=== PATIENT | male | born 1935 | race Caucasian/White ===

== ENCOUNTER 2024-02-07 03:35 | Inpatient (IN) | payer MEDICARE, OTHER ==
[~2024-02-07] VITALS: Ht 180.3 cm; Wt 68.5 kg
[2024-02-07] VITALS (15 sets, daily range): BP systolic 116–176; BP diastolic 58–86; PULSE 59–80; RESP 10–22; TEMP 94.3–99.3; O2SAT 95–100
[~2024-02-07 03:35] MED LIST: CALAN SR120 MG PO; FINASTERIDE5 MG PO; GLIPIZIDE5 MG PO; PROSCAR5 MG PO; TAMSULOSIN HCL0.4 MG PO; TRANDOLAPRIL4 MG PO
[2024-02-07 04:05] LABS: BASOPHILS % 0.2 % (0.0-1.0); EOSINOPHILS % 0.1 % (0.0-6.0); HEMOGLOBIN 14.7 g/dL (14.0-18.0); LYMPHOCYTES # (AUTO) 0.7 (1.0-3.2); MEAN CORPUSCULAR HEMOGLOBIN 30.1 pg (28-32); MEAN CORPUSCULAR HGB CONC 33.4 g/dL (31-35); MONOCYTES # (AUTO) 0.3 (0.2-0.8); MONOCYTES % 3.1 % (4.4-11.3); NEUTROPHILS # (AUTO) 9.1 (2.1-6.9); NEUTROPHILS % 89.3 % (38.7-80.0); PLATELET COUNT 213 x10e3/uL (140-360); RED BLOOD COUNT 4.89 x10e6/uL (4.3-5.7); RED CELL DISTRIBUTION WIDTH 12.3 % (11.7-14.4); WHITE BLOOD COUNT 10.24 x10e3/uL (4.8-10.8)
[2024-02-07] MEDS: Morphine 4mg INJECTION 4 MG/ML INJ IV ONE (04:12)
[2024-02-07] MEDS: ONDANSETRON HCL INJ 2MG/ML 2ML 2 MG/ML VIAL IV STA (04:13)
[2024-02-07 04:19] LABS: ALBUMIN 4.8 g/dL (3.5-5.0); ALBUMIN/GLOBULIN RATIO 1.3 (0.8-2.0); ANION GAP 22.2 mmol/L (8-16); BILIRUBIN,TOTAL 1.1 mg/dL (0.2-1.2); CALCIUM 9.9 mg/dL (8.4-10.2); CREATININE, SERUM 1.08 mg/dL (0.72-1.25); POTASSIUM 4.2 mmol/L (3.5-5.1); TOTAL PROTEIN 8.5 g/dL (6.5-8.1)
[2024-02-07] MEDS ORDERED: IOPAMIDOL 370 MG/ML 100 ML INFUS..BTL INJ ONE (04:31)
[2024-02-07 04:47] LABS: TROPONIN I 0.05 ng/mL (0-0.300)
[2024-02-07] MEDS ORDERED: HYDRALAZINE HCL 20 MG/ML VIAL ONE (04:55)
[2024-02-07] MEDS: BENZOCAINE/TETRACAINE/BUTAMBEN AERO SPRAY 56 GM CAN TOP ONE (05:11)
[2024-02-07] MEDS ORDERED: DEXTROSE 50% SYRINGE 50 ML IV PRN (05:15)
[2024-02-07] MEDS: SODIUM CHLORIDE 0.9% 1000ML 1,000 ML IV SCH ×2 (05:29→21:43)
[2024-02-07] MEDS: HYDRALAZINE HCL 20 MG/ML VIAL IV STA (05:29)
[2024-02-07 06:16] LABS: CLARITY,URINE CLEAR (CLEAR); COLOR,URINE YELLOW (YELLOW)
[2024-02-07 06:17] LABS: LEUKOCYTE ESTERASE ,URINE NEGATIVE (NEGATIVE); PH,URINE 6 (5 - 7)
[2024-02-07 06:18] LABS: BILIRUBIN,URINE NEGATIVE (NEGATIVE); GLUCOSE, URINE 500 (NEGATIVE); KETONES,URINE 2+ (NEGATIVE); NITRITE,URINE NEGATIVE (NEGATIVE); PROTEIN,URINE DIPSTICK >=300 (NEGATIVE); URINE UROBILINOGEN 0.2 mg/dL (0.2 - 1)
[2024-02-07 06:31] LABS: BACTERIA,URINE RARE /HPF; EPITHELIAL CELLS,URINE RARE /LPF; WBC,URINE (MAN) 0-5 /HPF (0-5)
[2024-02-07] MEDS ORDERED: METFORMIN HCL500 MG PO (07:01)
[2024-02-07] MEDS ORDERED: LOSARTAN POTASS25 MG PO (07:01)
[2024-02-07] MEDS ORDERED: JANUVIA50 MG PO (07:01)
[2024-02-07] MEDS ORDERED: FLOMAX0.4 MG PO (07:01)
[2024-02-07] MEDS ORDERED: JANUVIA100 MG PO (07:01)
[2024-02-07] MEDS ORDERED: VERAPAMIL ER120 MG PO (07:01)
[2024-02-07] MEDS: INSULIN REGULAR, HUMAN 100 UNIT/1 ML SQ SCH (07:30)
[2024-02-07] MEDS: Morphine 4mg INJECTION 4 MG/ML INJ IV PRN (08:41)
[2024-02-07 09:01] LABS: HEMATOCRIT 39.6 % (38.2-49.6); HEMOGLOBIN 14.1 g/dL (14.0-18.0)
[2024-02-07 09:20] LABS: ANION GAP 18.6 mmol/L (8-16); CALCIUM 9.3 mg/dL (8.4-10.2); CREATININE, SERUM 1.1 mg/dL (0.72-1.25); POTASSIUM 3.6 mmol/L (3.5-5.1)
[2024-02-07] MEDS: ONDANSETRON HCL INJ 2MG/ML 2ML 2 MG/ML VIAL IV PRN (12:29)
[2024-02-07] MEDS ORDERED: SUCCINYLCHOLINE CHLORIDE 20 MG/ML 10ML VIAL ONE (18:12)
[2024-02-07] MEDS ORDERED: FENTANYL CITRATE/PF 100MCG/2 ML INJ ONE ×2 (18:12→20:22)
[2024-02-07] MEDS ORDERED: ROCURONIUM BROMIDE 1 ML IV ONE (18:12)
[2024-02-07] MEDS ORDERED: LIDOCAINE HCL 2% LOCAL INJ 5 ML SDV VIAL INJ ONE (18:12)
[2024-02-07] MEDS ORDERED: PROPOFOL IV EMULSION 10 MG/ML 20 ML VIAL ONE (18:13)
[2024-02-07] MEDS ORDERED: EPHEDRINE SULFATE INJ 50 MG/ML VIAL ONE (18:36)
[2024-02-07] MEDS ORDERED: ACETAMINOPHEN 1000 MG/100 ML 100 ML IV ONE (18:57)
[2024-02-07] MEDS: PIPERACILLIN/TAZOBACTAM 3.375 GM VIAL ONE (19:04)
[2024-02-07] MEDS: ROPIVACAINE 246.25 MG, EPINEPHRINE HCL 1:1000 1ML 0.5 MG, CLONIDINE HCL 0.08 MG, KETORO... INJ ONE (19:04)
[2024-02-07] MEDS ORDERED: SUGAMMADEX SODIUM 200 MG/2 ML VIAL IV ONE (19:16)
[2024-02-07] MEDS ORDERED: ONDANSETRON HCL INJ 2MG/ML 2ML 2 MG/ML VIAL ONE (19:54)
[2024-02-07] MEDS ORDERED: METOCLOPRAMIDE HCL 10 MG/2ML VIAL ONE (19:54)
[2024-02-07] MEDS: SODIUM CHLORIDE 0.9% 250ML IRRIG IR SCH (21:43)
[2024-02-08] VITALS (47 sets, daily range): BP systolic 117–184; BP diastolic 55–82; PULSE 47–81; RESP 8–21; TEMP 97.1–99; O2SAT 95–100
[2024-02-08] MEDS: HYDROMORPHONE 1MG/1ML INJ IV PRN (03:58)
[2024-02-08 05:40] LABS: BASOPHILS # (AUTO) 0.1 (0.0-0.1); BASOPHILS % 0.5 % (0.0-1.0); EOSINOPHILS % 0.1 % (0.0-6.0); HEMATOCRIT 35.9 % (38.2-49.6); HEMOGLOBIN 11.9 g/dL (14.0-18.0); LYMPHOCYTES # (AUTO) 0.3 (1.0-3.2); LYMPHOCYTES % 3.2 % (18.0-39.1); MEAN CORPUSCULAR HEMOGLOBIN 30.3 pg (28-32); MEAN CORPUSCULAR HGB CONC 33.1 g/dL (31-35); MEAN CORPUSCULAR VOLUME 91.3 fL (81-99); MONOCYTES # (AUTO) 0.5 (0.2-0.8); MONOCYTES % 4.8 % (4.4-11.3); NEUTROPHILS # (AUTO) 8.9 (2.1-6.9); NEUTROPHILS % 91.1 % (38.7-80.0); PLATELET COUNT 156 x10e3/uL (140-360); RED BLOOD COUNT 3.93 x10e6/uL (4.3-5.7); RED CELL DISTRIBUTION WIDTH 12.9 % (11.7-14.4); WHITE BLOOD COUNT 9.79 x10e3/uL (4.8-10.8)
[2024-02-08 05:53] LABS: ALBUMIN 3.1 g/dL (3.5-5.0); ALBUMIN/GLOBULIN RATIO 1.3 (0.8-2.0); ANION GAP 13.6 mmol/L (8-16); BILIRUBIN,TOTAL 0.8 mg/dL (0.2-1.2); CALCIUM 8.2 mg/dL (8.4-10.2); CREATININE, SERUM 1.3 mg/dL (0.72-1.25); POTASSIUM 3.6 mmol/L (3.5-5.1); TOTAL PROTEIN 5.4 g/dL (6.5-8.1)
[2024-02-08] MEDS: ACETAMINOPHEN 1000 MG/100 ML IV PRN (10:00)
[2024-02-08] MEDS: HYDRALAZINE HCL 20 MG/ML VIAL IV PRN (17:14)
[2024-02-09] VITALS (52 sets, daily range): BP systolic 146–181; BP diastolic 61–87; PULSE 61–81; RESP 9–23; TEMP 97.9–98.6; O2SAT 92–100
[2024-02-09 06:27] LABS: BASOPHILS # (AUTO) 0.1 (0.0-0.1); EOSINOPHILS # (AUTO) 0.2 (0.0-0.4); EOSINOPHILS % 2.2 % (0.0-6.0); HEMATOCRIT 39.9 % (38.2-49.6); HEMOGLOBIN 12.8 g/dL (14.0-18.0); LYMPHOCYTES # (AUTO) 1.1 (1.0-3.2); LYMPHOCYTES % 11.5 % (18.0-39.1); MEAN CORPUSCULAR HEMOGLOBIN 29.9 pg (28-32); MEAN CORPUSCULAR HGB CONC 32.1 g/dL (31-35); MEAN CORPUSCULAR VOLUME 93.2 fL (81-99); MONOCYTES # (AUTO) 0.5 (0.2-0.8); MONOCYTES % 5.2 % (4.4-11.3); NEUTROPHILS # (AUTO) 7.8 (2.1-6.9); NEUTROPHILS % 79.7 % (38.7-80.0); PLATELET COUNT 146 x10e3/uL (140-360); RED BLOOD COUNT 4.28 x10e6/uL (4.3-5.7); RED CELL DISTRIBUTION WIDTH 12.8 % (11.7-14.4); WHITE BLOOD COUNT 9.75 x10e3/uL (4.8-10.8)
[2024-02-09 06:55] LABS: ALBUMIN 3.1 g/dL (3.5-5.0); ALBUMIN/GLOBULIN RATIO 1.2 (0.8-2.0); ANION GAP 14.3 mmol/L (8-16); BILIRUBIN,TOTAL 0.8 mg/dL (0.2-1.2); CALCIUM 8.5 mg/dL (8.4-10.2); CREATININE, SERUM 0.88 mg/dL (0.72-1.25); MAGNESIUM 2.2 MG/DL (1.3-2.1); POTASSIUM 3.3 mmol/L (3.5-5.1); TOTAL PROTEIN 5.7 g/dL (6.5-8.1)
[2024-02-09 07:17] LABS: FERRITIN 399.05 ng/mL (21.81-274.66)
[2024-02-09] MEDS: BISACODYL 10 MG SUPP PR ONE (07:41)
[2024-02-09] MEDS: POTASSIUM CHLORIDE 10MEQ/100ML 100 ML IV SCH (10:33)
[2024-02-10] VITALS (11 sets, daily range): BP systolic 140–194; BP diastolic 59–78; PULSE 55–78; RESP 12–21; TEMP 97.6–98.9; O2SAT 96–100
[2024-02-10 06:11] LABS: BASOPHILS # (AUTO) 0.1 (0.0-0.1); BASOPHILS % 0.9 % (0.0-1.0); EOSINOPHILS # (AUTO) 0.3 (0.0-0.4); HEMATOCRIT 33.4 % (38.2-49.6); LYMPHOCYTES # (AUTO) 0.5 (1.0-3.2); LYMPHOCYTES % 7.2 % (18.0-39.1); MEAN CORPUSCULAR HEMOGLOBIN 30.7 pg (28-32); MEAN CORPUSCULAR HGB CONC 32.9 g/dL (31-35); MEAN CORPUSCULAR VOLUME 93.3 fL (81-99); MONOCYTES # (AUTO) 0.4 (0.2-0.8); MONOCYTES % 5.3 % (4.4-11.3); NEUTROPHILS # (AUTO) 6.2 (2.1-6.9); NEUTROPHILS % 82.3 % (38.7-80.0); PLATELET COUNT 142 x10e3/uL (140-360); RED BLOOD COUNT 3.58 x10e6/uL (4.3-5.7); RED CELL DISTRIBUTION WIDTH 12.9 % (11.7-14.4); WHITE BLOOD COUNT 7.49 x10e3/uL (4.8-10.8)
[2024-02-10 06:28] LABS: ALBUMIN 2.6 g/dL (3.5-5.0); ALBUMIN/GLOBULIN RATIO 1.1 (0.8-2.0); ANION GAP 12.5 mmol/L (8-16); BILIRUBIN,TOTAL 0.8 mg/dL (0.2-1.2); CALCIUM 8.1 mg/dL (8.4-10.2); CREATININE, SERUM 0.82 mg/dL (0.72-1.25); POTASSIUM 3.5 mmol/L (3.5-5.1)
[2024-02-10] MEDS: BISACODYL 10 MG SUPP PR ONE (08:08)
[2024-02-10] MEDS: HYDROCODONE/APAP 5MG-325MG TAB PO PRN (16:26)
[2024-02-10] MEDS: VERAPAMIL HCL 120 MG TABSR PO SCH (17:19)
[2024-02-11] VITALS (9 sets, daily range): BP systolic 169–179; BP diastolic 80–99; PULSE 61–73; RESP 17–20; TEMP 97.5–98.4; O2SAT 96–99
[2024-02-11] MEDS: FINASTERIDE 5 MG TAB PO SCH (08:47)
[2024-02-11] MEDS: TAMSULOSIN HCL 0.4 MG CAP PO SCH (08:48)
[2024-02-11] MEDS: LOSARTAN POTASSIUM 25 MG TAB PO SCH (08:48)
[2024-02-11 09:27] LABS: BASOPHILS % 0.6 % (0.0-1.0); EOSINOPHILS # (AUTO) 0.7 (0.0-0.4); EOSINOPHILS % 9.7 % (0.0-6.0); HEMATOCRIT 39.4 % (38.2-49.6); HEMOGLOBIN 13.1 g/dL (14.0-18.0); LYMPHOCYTES # (AUTO) 0.8 (1.0-3.2); LYMPHOCYTES % 11.9 % (18.0-39.1); MEAN CORPUSCULAR HGB CONC 33.2 g/dL (31-35); MEAN CORPUSCULAR VOLUME 90.4 fL (81-99); MONOCYTES # (AUTO) 0.4 (0.2-0.8); MONOCYTES % 5.6 % (4.4-11.3); NEUTROPHILS # (AUTO) 4.9 (2.1-6.9); NEUTROPHILS % 71.9 % (38.7-80.0); PLATELET COUNT 174 x10e3/uL (140-360); RED BLOOD COUNT 4.36 x10e6/uL (4.3-5.7); WHITE BLOOD COUNT 6.81 x10e3/uL (4.8-10.8)
[2024-02-11 09:56] LABS: ANION GAP 13.4 mmol/L (8-16); CALCIUM 8.4 mg/dL (8.4-10.2); CREATININE, SERUM 0.77 mg/dL (0.72-1.25)
[2024-02-11 10:00] LABS: POTASSIUM 3.4 mmol/L (3.5-5.1)
[2024-02-11] MEDS ORDERED: SIMETHICONE 80 MG CHEW PO PRN (14:30)
[2024-02-11] MEDS: CALCIUM CARBONATE 500 MG CHEWABLE TABS PO PRN (14:50)
[2024-02-11] MEDS: ONDANSETRON HCL INJ 2MG/ML 2ML 2 MG/ML VIAL IV PRN (15:18)
[2024-02-11] MEDS: DEXTROSE 5%/0.9% SOD CHL 1,000 ML IV SCH (15:19)
[2024-02-11] MEDS: LOSARTAN POTASSIUM 100 MG TAB PO ONE (16:42)
[2024-02-11] MEDS: HYDRALAZINE HCL 25 MG TAB PO SCH (16:45)
[2024-02-11] MEDS: ACETAMINOPHEN 1000 MG/100 ML IV PRN (20:38)
[2024-02-12] VITALS (7 sets, daily range): BP systolic 140–178; BP diastolic 74–87; PULSE 64–71; RESP 16–21; TEMP 97.5–98.2; O2SAT 96–99
[2024-02-12 06:03] LABS: ALBUMIN 2.6 g/dL (3.5-5.0); ANION GAP 12.3 mmol/L (8-16); BILIRUBIN,TOTAL 0.9 mg/dL (0.2-1.2); CALCIUM 8.1 mg/dL (8.4-10.2); CREATININE, SERUM 0.78 mg/dL (0.72-1.25); TOTAL PROTEIN 5.2 g/dL (6.5-8.1)
[2024-02-12 06:05] LABS: POTASSIUM 3.3 mmol/L (3.5-5.1)
[2024-02-12 07:18] LABS: BASOPHILS # (AUTO) 0.1 (0.0-0.1); BASOPHILS % 0.9 % (0.0-1.0); EOSINOPHILS # (AUTO) 0.2 (0.0-0.4); EOSINOPHILS % 2.7 % (0.0-6.0); HEMATOCRIT 40.6 % (38.2-49.6); HEMOGLOBIN 13.5 g/dL (14.0-18.0); LYMPHOCYTES # (AUTO) 0.8 (1.0-3.2); LYMPHOCYTES % 11.6 % (18.0-39.1); MEAN CORPUSCULAR HEMOGLOBIN 30.2 pg (28-32); MEAN CORPUSCULAR HGB CONC 33.3 g/dL (31-35); MEAN CORPUSCULAR VOLUME 90.8 fL (81-99); MONOCYTES # (AUTO) 0.5 (0.2-0.8); MONOCYTES % 7.8 % (4.4-11.3); NEUTROPHILS # (AUTO) 5.1 (2.1-6.9); NEUTROPHILS % 76.8 % (38.7-80.0); PLATELET COUNT 182 x10e3/uL (140-360); RED BLOOD COUNT 4.47 x10e6/uL (4.3-5.7); RED CELL DISTRIBUTION WIDTH 12.8 % (11.7-14.4); WHITE BLOOD COUNT 6.58 x10e3/uL (4.8-10.8)
[2024-02-12] MEDS: LOSARTAN POTASSIUM 100 MG TAB PO SCH (09:25)
[2024-02-12 13:58] LABS: CALCIUM 8.4 mg/dL (8.4-10.2); CREATININE, SERUM 0.78 mg/dL (0.72-1.25)
[2024-02-12] MEDS ORDERED: POTASSIUM CHLORIDE 10MEQ/100ML 100 ML IV SCH (15:45)
[2024-02-12] MEDS: POTASSIUM CHLORIDE 10MEQ EA PO ONE (16:16)
[2024-02-12] MEDS: METOCLOPRAMIDE HCL 10 MG/2ML VIAL IV SCH (18:15)
[2024-02-12] MEDS: SODIUM CHLORIDE 0.9% 250ML IRRIG IR SCH (18:15)
[2024-02-12] MEDS: BISACODYL 10 MG SUPP PR SCH (21:00)
[2024-02-13 00:38] VITALS: BP 175/91; PULSE 70; RESP 20; TEMP 98.1; O2SAT 97
[2024-02-13 04:41] VITALS: BP 181/92; PULSE 80; RESP 20; TEMP 99.3; O2SAT 98
[2024-02-13 07:01] LABS: BASOPHILS % 0.4 % (0.0-1.0); EOSINOPHILS % 0.4 % (0.0-6.0); HEMATOCRIT 40.3 % (38.2-49.6); LYMPHOCYTES % 10.6 % (18.0-39.1); MEAN CORPUSCULAR HEMOGLOBIN 30.1 pg (28-32); MEAN CORPUSCULAR HGB CONC 34.7 g/dL (31-35); MEAN CORPUSCULAR VOLUME 86.7 fL (81-99); MONOCYTES # (AUTO) 0.6 (0.2-0.8); MONOCYTES % 6.5 % (4.4-11.3); NEUTROPHILS # (AUTO) 7.5 (2.1-6.9); NEUTROPHILS % 81.7 % (38.7-80.0); PLATELET COUNT 254 x10e3/uL (140-360); RED BLOOD COUNT 4.65 x10e6/uL (4.3-5.7); WHITE BLOOD COUNT 9.14 x10e3/uL (4.8-10.8)
[2024-02-13 07:30] LABS: ALBUMIN 2.8 g/dL (3.5-5.0); ANION GAP 16.4 mmol/L (8-16); BILIRUBIN,TOTAL 0.8 mg/dL (0.2-1.2); CALCIUM 8.5 mg/dL (8.4-10.2); CREATININE, SERUM 0.79 mg/dL (0.72-1.25); TOTAL PROTEIN 5.5 g/dL (6.5-8.1)
[2024-02-13 07:40] LABS: POTASSIUM 3.4 mmol/L (3.5-5.1)
[2024-02-13 08:13] VITALS: BP 166/85; PULSE 83; RESP 16; TEMP 97.9; O2SAT 96
[2024-02-13] MEDS ORDERED: POTASSIUM CHLORIDE 10MEQ EA PO ONE (09:15)
[2024-02-13] MEDS: POTASSIUM CHLORIDE 10MEQ/100ML 100 ML IV ONE ×2 (09:48→11:48)
[2024-02-13 12:08] VITALS: BP 171/86; PULSE 84; RESP 19; TEMP 98.2; O2SAT 96
[2024-02-13 16:10] VITALS: BP 147/74; PULSE 77; RESP 18; TEMP 97.7; O2SAT 96
[2024-02-13 20:00] VITALS: BP 122/66; PULSE 76; RESP 16; TEMP 98.2; O2SAT 97
[2024-02-14] VITALS (8 sets, daily range): BP systolic 159–186; BP diastolic 72–96; PULSE 71–77; RESP 16–19; TEMP 97.6–98.4; O2SAT 63–98
[2024-02-14 06:16] LABS: BASOPHILS % 0.5 % (0.0-1.0); EOSINOPHILS # (AUTO) 0.2 (0.0-0.4); EOSINOPHILS % 2.7 % (0.0-6.0); HEMATOCRIT 35.7 % (38.2-49.6); HEMOGLOBIN 12.2 g/dL (14.0-18.0); LYMPHOCYTES # (AUTO) 0.9 (1.0-3.2); LYMPHOCYTES % 12.2 % (18.0-39.1); MEAN CORPUSCULAR HEMOGLOBIN 30.3 pg (28-32); MEAN CORPUSCULAR HGB CONC 34.2 g/dL (31-35); MEAN CORPUSCULAR VOLUME 88.6 fL (81-99); MONOCYTES # (AUTO) 0.7 (0.2-0.8); MONOCYTES % 8.5 % (4.4-11.3); NEUTROPHILS # (AUTO) 5.8 (2.1-6.9); NEUTROPHILS % 75.6 % (38.7-80.0); PLATELET COUNT 230 x10e3/uL (140-360); RED BLOOD COUNT 4.03 x10e6/uL (4.3-5.7); WHITE BLOOD COUNT 7.72 x10e3/uL (4.8-10.8)
[2024-02-14 07:00] LABS: ALBUMIN 2.6 g/dL (3.5-5.0); ALBUMIN/GLOBULIN RATIO 1.2 (0.8-2.0); ANION GAP 11.4 mmol/L (8-16); BILIRUBIN,TOTAL 0.8 mg/dL (0.2-1.2); CALCIUM 8.2 mg/dL (8.4-10.2); CREATININE, SERUM 0.81 mg/dL (0.72-1.25); TOTAL PROTEIN 4.8 g/dL (6.5-8.1)
[2024-02-14 07:03] LABS: POTASSIUM 3.4 mmol/L (3.5-5.1)
[2024-02-14] MEDS: POTASSIUM CHLORIDE 10MEQ/100ML 200 ML IV ONE (08:14)
[2024-02-14] MEDS: HYDROMORPHONE 1MG/1ML INJ IV PRN (21:18)
[2024-02-15] VITALS (7 sets, daily range): BP systolic 143–181; BP diastolic 73–92; PULSE 65–77; RESP 16–20; TEMP 97.2–98.6; O2SAT 95–99
[2024-02-15 06:45] LABS: BASOPHILS # (AUTO) 0.1 (0.0-0.1); BASOPHILS % 0.9 % (0.0-1.0); EOSINOPHILS # (AUTO) 0.5 (0.0-0.4); EOSINOPHILS % 5.7 % (0.0-6.0); HEMATOCRIT 34.2 % (38.2-49.6); HEMOGLOBIN 11.1 g/dL (14.0-18.0); LYMPHOCYTES # (AUTO) 0.7 (1.0-3.2); MEAN CORPUSCULAR HEMOGLOBIN 29.8 pg (28-32); MEAN CORPUSCULAR HGB CONC 32.5 g/dL (31-35); MEAN CORPUSCULAR VOLUME 91.9 fL (81-99); MONOCYTES # (AUTO) 0.6 (0.2-0.8); MONOCYTES % 7.1 % (4.4-11.3); NEUTROPHILS # (AUTO) 6.6 (2.1-6.9); NEUTROPHILS % 77.8 % (38.7-80.0); PLATELET COUNT 232 x10e3/uL (140-360); RED BLOOD COUNT 3.72 x10e6/uL (4.3-5.7); RED CELL DISTRIBUTION WIDTH 12.7 % (11.7-14.4); WHITE BLOOD COUNT 8.47 x10e3/uL (4.8-10.8)
[2024-02-15 07:15] LABS: ALBUMIN 2.5 g/dL (3.5-5.0); BILIRUBIN,TOTAL 0.8 mg/dL (0.2-1.2); CALCIUM 7.7 mg/dL (8.4-10.2); CREATININE, SERUM 0.71 mg/dL (0.72-1.25); MAGNESIUM 1.8 MG/DL (1.3-2.1)
[2024-02-15] MEDS: POTASSIUM CHLORIDE 10MEQ/100ML 400 ML IV ONE (13:06)
[2024-02-15] MEDS: MAGNESIUM SULFATE 2GM/50ML 50 ML IV ONE (13:07)
[2024-02-15] MEDS: HYDRALAZINE HCL 20 MG/ML VIAL IV PRN (13:08)
[2024-02-16 05:30] VITALS: BP 125/84; PULSE 73; RESP 21; TEMP 98.1; O2SAT 96
[2024-02-16 06:27] LABS: BASOPHILS # (AUTO) 0.1 (0.0-0.1); BASOPHILS % 1.2 % (0.0-1.0); EOSINOPHILS # (AUTO) 0.5 (0.0-0.4); EOSINOPHILS % 6.5 % (0.0-6.0); HEMATOCRIT 35.7 % (38.2-49.6); HEMOGLOBIN 11.7 g/dL (14.0-18.0); LYMPHOCYTES % 12.2 % (18.0-39.1); MEAN CORPUSCULAR HEMOGLOBIN 30.2 pg (28-32); MEAN CORPUSCULAR HGB CONC 32.8 g/dL (31-35); MEAN CORPUSCULAR VOLUME 92.2 fL (81-99); MONOCYTES # (AUTO) 0.5 (0.2-0.8); MONOCYTES % 6.1 % (4.4-11.3); NEUTROPHILS # (AUTO) 5.9 (2.1-6.9); NEUTROPHILS % 73.3 % (38.7-80.0); PLATELET COUNT 243 x10e3/uL (140-360); RED BLOOD COUNT 3.87 x10e6/uL (4.3-5.7); RED CELL DISTRIBUTION WIDTH 12.7 % (11.7-14.4); WHITE BLOOD COUNT 8.02 x10e3/uL (4.8-10.8)
[2024-02-16 06:56] LABS: ALBUMIN 2.7 g/dL (3.5-5.0); ALBUMIN/GLOBULIN RATIO 1.1 (0.8-2.0); BILIRUBIN,TOTAL 0.9 mg/dL (0.2-1.2); CALCIUM 7.5 mg/dL (8.4-10.2); CREATININE, SERUM 0.71 mg/dL (0.72-1.25); MAGNESIUM 2.1 MG/DL (1.3-2.1); TOTAL PROTEIN 5.1 g/dL (6.5-8.1)
[2024-02-16 08:29] VITALS: BP 182/81; PULSE 67; RESP 16; TEMP 97.8; O2SAT 98
[2024-02-16] MEDS: HYDRALAZINE HCL 20 MG/ML VIAL IV PRN (10:39)
[2024-02-16 12:49] VITALS: BP 137/68; PULSE 72; RESP 16; TEMP 97.4; O2SAT 100
[2024-02-16] MEDS: BISACODYL 10 MG SUPP PR ONE (14:51)
[2024-02-16] MEDS: POTASSIUM CHLORIDE 10MEQ/100ML 400 ML IV ONE (16:14)
[2024-02-16 16:22] VITALS: BP 144/74; PULSE 75; RESP 18; TEMP 98.1; O2SAT 99
[2024-02-16] MEDS: ENOXAPARIN SOD INJ 40 MG/0.4 ML SYR SC SCH (17:52)
[2024-02-16 19:38] VITALS: BP 144/74; PULSE 75; RESP 18; TEMP 98.1; O2SAT 99
[2024-02-16 20:26] VITALS: BP 168/89; PULSE 67; RESP 21; TEMP 98.3; O2SAT 99
[2024-02-17] VITALS (8 sets, daily range): BP systolic 125–157; BP diastolic 60–88; PULSE 59–86; RESP 17–20; TEMP 97.6–98.6; O2SAT 97–99
[2024-02-17 06:32] LABS: BASOPHILS # (AUTO) 0.1 (0.0-0.1); BASOPHILS % 1.3 % (0.0-1.0); EOSINOPHILS # (AUTO) 0.6 (0.0-0.4); EOSINOPHILS % 10.4 % (0.0-6.0); HEMATOCRIT 31.6 % (38.2-49.6); HEMOGLOBIN 10.8 g/dL (14.0-18.0); LYMPHOCYTES % 18.6 % (18.0-39.1); MEAN CORPUSCULAR HEMOGLOBIN 29.8 pg (28-32); MEAN CORPUSCULAR HGB CONC 34.2 g/dL (31-35); MEAN CORPUSCULAR VOLUME 87.3 fL (81-99); MONOCYTES # (AUTO) 0.4 (0.2-0.8); MONOCYTES % 7.1 % (4.4-11.3); NEUTROPHILS # (AUTO) 3.4 (2.1-6.9); NEUTROPHILS % 62.2 % (38.7-80.0); PLATELET COUNT 265 x10e3/uL (140-360); RED BLOOD COUNT 3.62 x10e6/uL (4.3-5.7); RED CELL DISTRIBUTION WIDTH 12.6 % (11.7-14.4); WHITE BLOOD COUNT 5.38 x10e3/uL (4.8-10.8)
[2024-02-17 07:27] LABS: ANION GAP 9.9 mmol/L (8-16); CALCIUM 7.5 mg/dL (8.4-10.2); CREATININE, SERUM 0.7 mg/dL (0.72-1.25)
[2024-02-17 07:39] LABS: POTASSIUM 2.9 mmol/L (3.5-5.1)
[2024-02-17] MEDS: POTASSIUM CHLORIDE 10MEQ EA PO ONE ×3 (09:09→18:31)
[2024-02-17] MEDS ORDERED: POTASSIUM CHLORIDE 20 MEQ TAB CR PO ONE (10:45)
[2024-02-17] MEDS: CALCIUM GLUC 1 G/50 ML NACL 50 ML IV ONE (12:15)
[2024-02-18 07:13] LABS: BASOPHILS # (AUTO) 0.1 (0.0-0.1); BASOPHILS % 1.4 % (0.0-1.0); EOSINOPHILS # (AUTO) 0.5 (0.0-0.4); EOSINOPHILS % 8.6 % (0.0-6.0); HEMATOCRIT 32.4 % (38.2-49.6); HEMOGLOBIN 11.1 g/dL (14.0-18.0); LYMPHOCYTES % 18.3 % (18.0-39.1); MEAN CORPUSCULAR HEMOGLOBIN 30.2 pg (28-32); MEAN CORPUSCULAR HGB CONC 34.3 g/dL (31-35); MONOCYTES # (AUTO) 0.4 (0.2-0.8); MONOCYTES % 7.5 % (4.4-11.3); NEUTROPHILS # (AUTO) 3.6 (2.1-6.9); NEUTROPHILS % 63.8 % (38.7-80.0); PLATELET COUNT 294 x10e3/uL (140-360); RED BLOOD COUNT 3.68 x10e6/uL (4.3-5.7); WHITE BLOOD COUNT 5.58 x10e3/uL (4.8-10.8)
[2024-02-18 07:46] LABS: ALBUMIN 2.5 g/dL (3.5-5.0); ALBUMIN/GLOBULIN RATIO 1.1 (0.8-2.0); ANION GAP 9.6 mmol/L (8-16); BILIRUBIN,TOTAL 0.6 mg/dL (0.2-1.2); CALCIUM 7.9 mg/dL (8.4-10.2); CREATININE, SERUM 0.74 mg/dL (0.72-1.25); MAGNESIUM 1.8 MG/DL (1.3-2.1); PHOSPHORUS 2.3 MG/DL (2.3-4.7); POTASSIUM 3.6 mmol/L (3.5-5.1); TOTAL PROTEIN 4.7 g/dL (6.5-8.1)
[2024-02-18 08:21] VITALS: BP 158/68; PULSE 65; RESP 18; TEMP 97.5; O2SAT 97
[2024-02-18 08:23] VITALS: BP 158/68; PULSE 65; RESP 18; TEMP 97.5; O2SAT 97
[2024-02-18 12:21] VITALS: BP 144/70; PULSE 67; RESP 18; TEMP 97.5; O2SAT 99
[2024-02-18 16:50] VITALS: BP 125/81; PULSE 65; RESP 18; TEMP 97.6; O2SAT 95
[2024-02-18 20:19] VITALS: BP 132/65; PULSE 64; RESP 18; TEMP 97.6; O2SAT 99
[2024-02-18 20:58] VITALS: BP 132/65; PULSE 64; RESP 18; TEMP 97.6; O2SAT 99
[2024-02-19 00:32] VITALS: BP 126/62; PULSE 60; RESP 18; TEMP 97.6; O2SAT 97
[2024-02-19 04:00] VITALS: BP 148/64; PULSE 60; RESP 17; TEMP 97.9; O2SAT 97
[2024-02-19 05:32] LABS: BASOPHILS # (AUTO) 0.1 (0.0-0.1); BASOPHILS % 1.1 % (0.0-1.0); EOSINOPHILS # (AUTO) 0.4 (0.0-0.4); EOSINOPHILS % 5.6 % (0.0-6.0); HEMATOCRIT 33.1 % (38.2-49.6); HEMOGLOBIN 10.7 g/dL (14.0-18.0); LYMPHOCYTES # (AUTO) 1.1 (1.0-3.2); LYMPHOCYTES % 16.5 % (18.0-39.1); MEAN CORPUSCULAR HEMOGLOBIN 29.9 pg (28-32); MEAN CORPUSCULAR HGB CONC 32.3 g/dL (31-35); MEAN CORPUSCULAR VOLUME 92.5 fL (81-99); MONOCYTES # (AUTO) 0.4 (0.2-0.8); MONOCYTES % 6.2 % (4.4-11.3); NEUTROPHILS # (AUTO) 4.5 (2.1-6.9); NEUTROPHILS % 70.1 % (38.7-80.0); PLATELET COUNT 278 x10e3/uL (140-360); RED BLOOD COUNT 3.58 x10e6/uL (4.3-5.7); WHITE BLOOD COUNT 6.43 x10e3/uL (4.8-10.8)
[2024-02-19 06:30] LABS: ALBUMIN 2.5 g/dL (3.5-5.0); ALBUMIN/GLOBULIN RATIO 1.3 (0.8-2.0); ANION GAP 10.4 mmol/L (8-16); BILIRUBIN,TOTAL 0.7 mg/dL (0.2-1.2); CALCIUM 7.8 mg/dL (8.4-10.2); CREATININE, SERUM 0.78 mg/dL (0.72-1.25); MAGNESIUM 1.8 MG/DL (1.3-2.1); PHOSPHORUS 3.2 MG/DL (2.3-4.7); TOTAL PROTEIN 4.5 g/dL (6.5-8.1)
[2024-02-19 06:34] LABS: POTASSIUM 3.4 mmol/L (3.5-5.1)
[2024-02-19 06:41] LABS: CALCIUM IONIZED 1.2 mmol/L (1.09-1.30)
[2024-02-19 07:01] LABS: ABG HCO3 23 mmol/L (22-26); ABG PCO2 38 mmHg (35-45); ABG PH 7.39 (7.35-7.45); ABG PO2 116 mmHg (80-105); ABG TCO2 24
[2024-02-19 07:06] LABS: ABG HCO3 25 mmol/L (22-26); ABG PCO2 39 mmHg (35-45); ABG PH 7.41 (7.35-7.45); ABG PO2 163 mmHg (80-105); ABG TCO2 26
[2024-02-19 08:00] VITALS: BP 147/75; PULSE 63; RESP 17; TEMP 98.2; O2SAT 97
[2024-02-19 12:00] VITALS: BP 151/63; PULSE 68; RESP 18; TEMP 98.2; O2SAT 99
[2024-02-19] MEDS: POTASSIUM CHLORIDE 10MEQ EA PO ONE (15:10)
[2024-02-19] MEDS: PNEUMOCOCCAL VACCINE POLYVALENT 23 MCG/0.5 ML VIAL IM SCH (15:12)
[2024-02-19 16:00] VITALS: BP 117/63; PULSE 64; RESP 17; TEMP 98; O2SAT 97
[2024-02-19 17:03] VITALS: BP 117/63
[2024-02-19] MEDS: PANTOPRAZOLE SOD 40 MG TABEC PO SCH (17:03)
== END 2024-02-19 19:12 | disposition home or self-care (01) | DRG 329 ==
LOC: ER 03:47 → ERHOLD 05:16 → MED/SURG2 06:17 → MED/SURG3 21:16 → ICU 21:25 → MED/SURG3 02-10 10:11
PROVIDERS: ADMIT Internal Medicine; ATTEND Internal Medicine
PROC: 0T9B70Z Drainage of Bladder with Drainage Device, Via Natural or Artificial Opening (ICD-10-PCS; 2024-02-07)
PROC: 0DBN0ZZ Excision of Sigmoid Colon, Open Approach (ICD-10-PCS; principal; 2024-02-07 18:21)
PROC: 0WQF0ZZ Repair Abdominal Wall, Open Approach (ICD-10-PCS; 2024-02-07 18:21)
PROC: 4A133R1 Monitoring of Arterial Saturation, Peripheral, Percutaneous Approach (ICD-10-PCS; 2024-02-18)
DX: K43.6 Other and unspecified ventral hernia with obstruction, without gangrene (principal); K56.2 Volvulus; E87.1 Hypo-osmolality and hyponatremia; K56.7 Ileus, unspecified; D63.8 Anemia in other chronic diseases classified elsewhere; I10 Essential (primary) hypertension; E11.9 Type 2 diabetes mellitus without complications; K21.00 Gastro-esophageal reflux disease with esophagitis, without bleeding; N40.0 Benign prostatic hyperplasia without lower urinary tract symptoms; R11.2 Nausea with vomiting, unspecified; Z79.84 Long term (current) use of oral hypoglycemic drugs; Z90.79 Acquired absence of other genital organ(s); Z88.2 Allergy status to sulfonamides; Z87.891 Personal history of nicotine dependence
CPT/HCPCS: 36415; 74018; 74019; 74022; 74177; 80048; 80053; 81001; 82150; 82607; 82728; 82805; 82948; 83036; 83540; 83605; 83690; 83735; 84100; 84132; 84466; 84484; 85014; 85018; 85025; 88305; 88307; 90732; 93005; 94799; 99252; 99284; J0171; J0330; J0360; J0612; J1171; J1650; J1885; J2003; J2270; J2405; J2470; J2543; J2765; J2795; J3475; J3480; J7030; J7042; Q9967

== ENCOUNTER 2024-02-22 07:42 | Inpatient (IN) | payer MEDICARE ==
[2024-02-22] VITALS (9 sets, daily range): BP systolic 151–157; BP diastolic 66–72; PULSE 61–68; RESP 17–18; TEMP 97.9–98.6; O2SAT 97–98
[~2024-02-22] VITALS: Ht 180.3 cm; Wt 61.2 kg
[~2024-02-22 07:42] MED LIST changes: +FLOMAX0.4 MG PO; +JANUVIA100 MG PO; +JANUVIA50 MG PO; +LOSARTAN POTASS25 MG PO; +METFORMIN HCL500 MG PO; +VERAPAMIL ER120 MG PO
[2024-02-22] MEDS: ONDANSETRON HCL INJ 2MG/ML 2ML 2 MG/ML VIAL IV STA (08:13)
[2024-02-22 08:16] LABS: BASOPHILS % 0.3 % (0.0-1.0); EOSINOPHILS % 0.3 % (0.0-6.0); HEMATOCRIT 37.8 % (38.2-49.6); HEMOGLOBIN 12.4 g/dL (14.0-18.0); LYMPHOCYTES # (AUTO) 0.5 (1.0-3.2); LYMPHOCYTES % 8.5 % (18.0-39.1); MEAN CORPUSCULAR HEMOGLOBIN 30.2 pg (28-32); MEAN CORPUSCULAR HGB CONC 32.8 g/dL (31-35); MONOCYTES # (AUTO) 0.5 (0.2-0.8); MONOCYTES % 8.3 % (4.4-11.3); NEUTROPHILS # (AUTO) 5.1 (2.1-6.9); NEUTROPHILS % 82.4 % (38.7-80.0); PLATELET COUNT 302 x10e3/uL (140-360); RED BLOOD COUNT 4.11 x10e6/uL (4.3-5.7); RED CELL DISTRIBUTION WIDTH 12.9 % (11.7-14.4); WHITE BLOOD COUNT 6.24 x10e3/uL (4.8-10.8)
[2024-02-22] MEDS ORDERED: LACTATED RINGER'S 500 ML IV ONE (08:30)
[2024-02-22 08:33] LABS: ALBUMIN 3.3 g/dL (3.5-5.0); ANION GAP 16.8 mmol/L (8-16); CALCIUM 9.3 mg/dL (8.4-10.2); CREATININE, SERUM 0.92 mg/dL (0.72-1.25); POTASSIUM 3.8 mmol/L (3.5-5.1); TOTAL PROTEIN 6.6 g/dL (6.5-8.1)
[2024-02-22] MEDS: LACTATED RINGER'S 500 ML IV ONE (08:53)
[2024-02-22] MEDS ORDERED: IOPAMIDOL 370 MG/ML 100 ML INFUS..BTL INJ ONE (09:16)
[2024-02-22] MEDS: SODIUM CHLORIDE 0.9% 1000ML 1,000 ML IV SCH (11:37)
[2024-02-22] MEDS ORDERED: DEXTROSE 50% SYRINGE 50 ML IV PRN (19:15)
[2024-02-22] MEDS: INSULIN LISPRO 100 UNIT/1 ML 3ML VIAL SQ SCH (20:50)
[2024-02-23] VITALS (8 sets, daily range): BP systolic 123–166; BP diastolic 57–72; PULSE 63–72; RESP 14–18; TEMP 97.7–98.3; O2SAT 92–98
[2024-02-23 05:34] LABS: BASOPHILS # (AUTO) 0.1 (0.0-0.1); BASOPHILS % 1.4 % (0.0-1.0); EOSINOPHILS # (AUTO) 0.2 (0.0-0.4); EOSINOPHILS % 4.5 % (0.0-6.0); HEMATOCRIT 33.1 % (38.2-49.6); HEMOGLOBIN 10.8 g/dL (14.0-18.0); LYMPHOCYTES # (AUTO) 0.7 (1.0-3.2); LYMPHOCYTES % 13.4 % (18.0-39.1); MEAN CORPUSCULAR HEMOGLOBIN 29.9 pg (28-32); MEAN CORPUSCULAR HGB CONC 32.6 g/dL (31-35); MEAN CORPUSCULAR VOLUME 91.7 fL (81-99); MONOCYTES # (AUTO) 0.7 (0.2-0.8); MONOCYTES % 13.8 % (4.4-11.3); NEUTROPHILS # (AUTO) 3.4 (2.1-6.9); NEUTROPHILS % 66.7 % (38.7-80.0); PLATELET COUNT 274 x10e3/uL (140-360); RED BLOOD COUNT 3.61 x10e6/uL (4.3-5.7); RED CELL DISTRIBUTION WIDTH 12.7 % (11.7-14.4); WHITE BLOOD COUNT 5.14 x10e3/uL (4.8-10.8)
[2024-02-23 05:51] LABS: ANION GAP 13.4 mmol/L (8-16); CALCIUM 8.3 mg/dL (8.4-10.2); CREATININE, SERUM 0.87 mg/dL (0.72-1.25)
[2024-02-23 05:54] LABS: POTASSIUM 3.4 mmol/L (3.5-5.1)
[2024-02-23 14:11] LABS: INR 1.05; PROTHROMBIN TIME 14.3 seconds (11.9-14.5)
[2024-02-23] MEDS: POTASSIUM CHLORIDE 10MEQ/100ML 100 ML IV SCH (14:13)
[2024-02-23] MEDS ORDERED: LIDOCAINE HCL 2% LOCAL INJ 5 ML SDV VIAL INJ ONE (14:50)
[2024-02-23] MEDS ORDERED: SUCCINYLCHOLINE CHLORIDE 20 MG/ML 10ML VIAL ONE (14:50)
[2024-02-23] MEDS ORDERED: FENTANYL CITRATE/PF 100MCG/2 ML INJ ONE ×2 (14:50→15:54)
[2024-02-23] MEDS ORDERED: ROCURONIUM BROMIDE 1 ML IV ONE (14:50)
[2024-02-23] MEDS ORDERED: PROPOFOL IV EMULSION 10 MG/ML 20 ML VIAL ONE (14:54)
[2024-02-23] MEDS ORDERED: ACETAMINOPHEN 1000 MG/100 ML 100 ML IV ONE (15:47)
[2024-02-23] MEDS ORDERED: SEVOFLURANE INHAL SOLN 250 ML PEN BTL ONE (15:47)
[2024-02-23] MEDS ORDERED: ONDANSETRON HCL INJ 2MG/ML 2ML 2 MG/ML VIAL ONE (16:15)
[2024-02-23] MEDS ORDERED: DEXAMETHASONE SOD PHOS INJ 4 MG/ML SDV ONE (16:15)
[2024-02-23] MEDS ORDERED: SUGAMMADEX SODIUM 200 MG/2 ML VIAL IV ONE (16:15)
[2024-02-23] MEDS ORDERED: EPHEDRINE SULFATE INJ 50 MG/ML VIAL ONE (16:15)
[2024-02-23] MEDS ORDERED: LACTATED RINGER'S 1,000 ML ONE (16:43)
[2024-02-23] MEDS: MEROPENEM 1 GM VIAL ONE (17:02)
[2024-02-23] MEDS: SODIUM CHLORIDE 0.9% 250ML IRRIG IR SCH (17:15)
[2024-02-23] MEDS ORDERED: ROPIVACAINE/EPI/CLONIDINE/KET 50 ML SYRINGE INJ ONE (17:15)
[2024-02-23] MEDS ORDERED: ACETAMINOPHEN 1000 MG/100 ML IV PRN (17:15)
[2024-02-23] MEDS: HYDROMORPHONE 1MG/1ML INJ IV PRN (22:35)
[2024-02-24] VITALS (8 sets, daily range): BP systolic 140–166; BP diastolic 67–73; PULSE 60–72; RESP 16–19; TEMP 98–99.1; O2SAT 97–100
[2024-02-24 06:03] LABS: BASOPHILS % 0.1 % (0.0-1.0); HEMATOCRIT 33.7 % (38.2-49.6); HEMOGLOBIN 11.2 g/dL (14.0-18.0); LYMPHOCYTES # (AUTO) 0.6 (1.0-3.2); LYMPHOCYTES % 6.4 % (18.0-39.1); MEAN CORPUSCULAR HEMOGLOBIN 29.7 pg (28-32); MEAN CORPUSCULAR HGB CONC 33.2 g/dL (31-35); MEAN CORPUSCULAR VOLUME 89.4 fL (81-99); MONOCYTES # (AUTO) 0.6 (0.2-0.8); MONOCYTES % 6.4 % (4.4-11.3); NEUTROPHILS # (AUTO) 7.4 (2.1-6.9); NEUTROPHILS % 86.7 % (38.7-80.0); PLATELET COUNT 287 x10e3/uL (140-360); RED BLOOD COUNT 3.77 x10e6/uL (4.3-5.7); RED CELL DISTRIBUTION WIDTH 12.8 % (11.7-14.4); WHITE BLOOD COUNT 8.53 x10e3/uL (4.8-10.8)
[2024-02-24 06:28] LABS: ALBUMIN 2.4 g/dL (3.5-5.0); ANION GAP 16.5 mmol/L (8-16); BILIRUBIN,TOTAL 0.4 mg/dL (0.2-1.2); CALCIUM 7.9 mg/dL (8.4-10.2); CREATININE, SERUM 0.96 mg/dL (0.72-1.25); POTASSIUM 4.5 mmol/L (3.5-5.1); TOTAL PROTEIN 4.7 g/dL (6.5-8.1)
[2024-02-24] MEDS: DEXTROSE 5%/0.9% SOD CHL 1,000 ML IV SCH (17:11)
[2024-02-24] MEDS: HYDRALAZINE HCL 20 MG/ML VIAL IV PRN (21:04)
[2024-02-25] VITALS (9 sets, daily range): BP systolic 122–170; BP diastolic 58–80; PULSE 67–72; RESP 15–18; TEMP 96.5–98.8; O2SAT 97–100
[2024-02-25 05:40] LABS: BASOPHILS # (AUTO) 0.1 (0.0-0.1); BASOPHILS % 0.7 % (0.0-1.0); EOSINOPHILS # (AUTO) 0.6 (0.0-0.4); HEMATOCRIT 37.1 % (38.2-49.6); HEMOGLOBIN 12.4 g/dL (14.0-18.0); LYMPHOCYTES # (AUTO) 0.8 (1.0-3.2); LYMPHOCYTES % 8.9 % (18.0-39.1); MEAN CORPUSCULAR HEMOGLOBIN 29.8 pg (28-32); MEAN CORPUSCULAR HGB CONC 33.4 g/dL (31-35); MEAN CORPUSCULAR VOLUME 89.2 fL (81-99); MONOCYTES # (AUTO) 0.5 (0.2-0.8); MONOCYTES % 4.9 % (4.4-11.3); NEUTROPHILS # (AUTO) 7.2 (2.1-6.9); NEUTROPHILS % 79.2 % (38.7-80.0); PLATELET COUNT 297 x10e3/uL (140-360); RED BLOOD COUNT 4.16 x10e6/uL (4.3-5.7); RED CELL DISTRIBUTION WIDTH 13.2 % (11.7-14.4); WHITE BLOOD COUNT 9.12 x10e3/uL (4.8-10.8)
[2024-02-25 06:09] LABS: ALBUMIN 2.3 g/dL (3.5-5.0); ALBUMIN/GLOBULIN RATIO 0.9 (0.8-2.0); ANION GAP 12.7 mmol/L (8-16); BILIRUBIN,TOTAL 0.4 mg/dL (0.2-1.2); CALCIUM 8.1 mg/dL (8.4-10.2); CREATININE, SERUM 0.86 mg/dL (0.72-1.25); POTASSIUM 3.7 mmol/L (3.5-5.1); TOTAL PROTEIN 4.8 g/dL (6.5-8.1)
[2024-02-25] MEDS: BISACODYL 10 MG SUPP PR ONE (10:49)
[2024-02-25] MEDS: ENOXAPARIN SOD INJ 40 MG/0.4 ML SYR SC SCH (17:37)
[2024-02-25] MEDS: BISACODYL 10 MG SUPP PR SCH (21:20)
[2024-02-26] VITALS (10 sets, daily range): BP systolic 119–161; BP diastolic 65–86; PULSE 68–76; RESP 16–18; TEMP 97.6–98.9; O2SAT 96–98
[2024-02-26 05:38] LABS: BASOPHILS # (AUTO) 0.1 (0.0-0.1); BASOPHILS % 0.7 % (0.0-1.0); EOSINOPHILS # (AUTO) 0.5 (0.0-0.4); EOSINOPHILS % 6.7 % (0.0-6.0); HEMATOCRIT 34.7 % (38.2-49.6); HEMOGLOBIN 11.6 g/dL (14.0-18.0); LYMPHOCYTES # (AUTO) 0.8 (1.0-3.2); LYMPHOCYTES % 11.1 % (18.0-39.1); MEAN CORPUSCULAR HEMOGLOBIN 30.1 pg (28-32); MEAN CORPUSCULAR HGB CONC 33.4 g/dL (31-35); MEAN CORPUSCULAR VOLUME 89.9 fL (81-99); MONOCYTES # (AUTO) 0.4 (0.2-0.8); MONOCYTES % 5.7 % (4.4-11.3); NEUTROPHILS # (AUTO) 5.5 (2.1-6.9); NEUTROPHILS % 75.7 % (38.7-80.0); PLATELET COUNT 252 x10e3/uL (140-360); RED BLOOD COUNT 3.86 x10e6/uL (4.3-5.7); RED CELL DISTRIBUTION WIDTH 13.2 % (11.7-14.4); WHITE BLOOD COUNT 7.31 x10e3/uL (4.8-10.8)
[2024-02-26 06:10] LABS: ALBUMIN 2.2 g/dL (3.5-5.0); ALBUMIN/GLOBULIN RATIO 0.9 (0.8-2.0); ANION GAP 11.2 mmol/L (8-16); BILIRUBIN,TOTAL 0.4 mg/dL (0.2-1.2); CALCIUM 7.6 mg/dL (8.4-10.2); CREATININE, SERUM 0.75 mg/dL (0.72-1.25); POTASSIUM 3.2 mmol/L (3.5-5.1); TOTAL PROTEIN 4.6 g/dL (6.5-8.1)
[2024-02-26] MEDS: POTASSIUM CHLORIDE 10MEQ/100ML 400 ML IV ONE (16:08)
[2024-02-26 16:21] LABS: BODY FLUID APPEARANCE SL.CLOUDY; BODY FLUID COLOR YELLOW; BODY FLUID TYPE PLEURAL; RBC,BODY FLUID 1000 cells/uL; WBC,BODY FLUID 148 cells/uL
[2024-02-26 18:04] LABS: LYMPHOCYTES,BODY FLUID 28 %; MONO/MACROPHG,BODY FLUID 19 %; NEUTROPHILS,BODY FLUID 51 %; OTHER CELLS,BODY FLUID 2 %; TOTAL CELLS COUNTED (DIFF) 100
[2024-02-26] MEDS: BISACODYL 10 MG SUPP PR SCH (21:00)
[2024-02-27] VITALS (10 sets, daily range): BP systolic 141–172; BP diastolic 66–91; PULSE 61–71; RESP 16–18; TEMP 97.5–98.9; O2SAT 98–100
[2024-02-27 05:34] LABS: BASOPHILS # (AUTO) 0.1 (0.0-0.1); BASOPHILS % 0.9 % (0.0-1.0); EOSINOPHILS # (AUTO) 0.6 (0.0-0.4); EOSINOPHILS % 8.6 % (0.0-6.0); HEMATOCRIT 34.3 % (38.2-49.6); HEMOGLOBIN 11.4 g/dL (14.0-18.0); LYMPHOCYTES # (AUTO) 0.8 (1.0-3.2); LYMPHOCYTES % 11.9 % (18.0-39.1); MEAN CORPUSCULAR HEMOGLOBIN 29.7 pg (28-32); MEAN CORPUSCULAR HGB CONC 33.2 g/dL (31-35); MEAN CORPUSCULAR VOLUME 89.3 fL (81-99); MONOCYTES # (AUTO) 0.4 (0.2-0.8); MONOCYTES % 5.4 % (4.4-11.3); NEUTROPHILS # (AUTO) 4.8 (2.1-6.9); NEUTROPHILS % 72.7 % (38.7-80.0); PLATELET COUNT 226 x10e3/uL (140-360); RED BLOOD COUNT 3.84 x10e6/uL (4.3-5.7); RED CELL DISTRIBUTION WIDTH 13.4 % (11.7-14.4); WHITE BLOOD COUNT 6.62 x10e3/uL (4.8-10.8)
[2024-02-27 06:01] LABS: CALCIUM IONIZED 1.2 mmol/L (1.09-1.30)
[2024-02-27 06:08] LABS: ALBUMIN 2.2 g/dL (3.5-5.0); ANION GAP 11.1 mmol/L (8-16); BILIRUBIN,TOTAL 0.5 mg/dL (0.2-1.2); CALCIUM 7.6 mg/dL (8.4-10.2); CREATININE, SERUM 0.72 mg/dL (0.72-1.25); MAGNESIUM 1.9 MG/DL (1.3-2.1); PHOSPHORUS 1.8 MG/DL (2.3-4.7); TOTAL PROTEIN 4.5 g/dL (6.5-8.1)
[2024-02-27 06:10] LABS: POTASSIUM 3.1 mmol/L (3.5-5.1)
[2024-02-27] MEDS: POTASSIUM CHLORIDE 10MEQ/100ML 400 ML IV ONE (09:40)
[2024-02-27] MEDS: ACETAMINOPHEN 1000 MG/100 ML IV PRN (09:40)
[2024-02-27] MEDS: SODIUM CHLORIDE 0.9% 1000ML 1,000 ML ONE (10:31)
[2024-02-27] MEDS: POTASSIUM CHLORIDE 10MEQ/100ML 100 ML IV SCH (11:32)
[2024-02-27] MEDS: ENOXAPARIN SOD INJ 40 MG/0.4 ML SYR SC SCH (18:45)
[2024-02-28] VITALS (8 sets, daily range): BP systolic 105–184; BP diastolic 57–90; PULSE 63–71; RESP 16–18; TEMP 97.6–98.1; O2SAT 98–100
[2024-02-28 05:44] LABS: BASOPHILS % 0.7 % (0.0-1.0); EOSINOPHILS # (AUTO) 0.6 (0.0-0.4); HEMATOCRIT 33.4 % (38.2-49.6); HEMOGLOBIN 11.2 g/dL (14.0-18.0); LYMPHOCYTES % 16.6 % (18.0-39.1); MEAN CORPUSCULAR HEMOGLOBIN 29.8 pg (28-32); MEAN CORPUSCULAR HGB CONC 33.5 g/dL (31-35); MEAN CORPUSCULAR VOLUME 88.8 fL (81-99); MONOCYTES # (AUTO) 0.4 (0.2-0.8); MONOCYTES % 6.1 % (4.4-11.3); NEUTROPHILS # (AUTO) 3.9 (2.1-6.9); NEUTROPHILS % 66.3 % (38.7-80.0); PLATELET COUNT 215 x10e3/uL (140-360); RED BLOOD COUNT 3.76 x10e6/uL (4.3-5.7); RED CELL DISTRIBUTION WIDTH 13.2 % (11.7-14.4)
[2024-02-28 06:15] LABS: ANION GAP 11.1 mmol/L (8-16); CALCIUM 7.5 mg/dL (8.4-10.2); CREATININE, SERUM 0.64 mg/dL (0.72-1.25)
[2024-02-28 06:30] LABS: POTASSIUM 3.1 mmol/L (3.5-5.1)
[2024-02-28] MEDS: POTASSIUM CHLORIDE 10MEQ EA PO ONE ×2 (09:02→11:54)
[2024-02-28] MEDS: BISACODYL 10 MG SUPP PR ONE (09:03)
[2024-02-28] MEDS: MAGNESIUM HYDROXIDE 30 ML UDC PO ONE (16:49)
[2024-02-28] MEDS: SIMETHICONE 80 MG CHEW PO PRN (21:04)
[2024-02-28] MEDS: BISACODYL 10 MG SUPP PR SCH (21:05)
[2024-02-29] VITALS (7 sets, daily range): BP systolic 122–147; BP diastolic 71–93; PULSE 65–84; RESP 16–20; TEMP 97.3–97.8; O2SAT 96–100
[2024-02-29 05:18] LABS: BASOPHILS # (AUTO) 0.1 (0.0-0.1); BASOPHILS % 0.7 % (0.0-1.0); EOSINOPHILS # (AUTO) 0.4 (0.0-0.4); HEMOGLOBIN 12.2 g/dL (14.0-18.0); LYMPHOCYTES % 14.2 % (18.0-39.1); MEAN CORPUSCULAR HEMOGLOBIN 29.8 pg (28-32); MEAN CORPUSCULAR HGB CONC 32.1 g/dL (31-35); MEAN CORPUSCULAR VOLUME 92.9 fL (81-99); MONOCYTES # (AUTO) 0.4 (0.2-0.8); MONOCYTES % 6.2 % (4.4-11.3); NEUTROPHILS # (AUTO) 4.9 (2.1-6.9); NEUTROPHILS % 72.3 % (38.7-80.0); PLATELET COUNT 225 x10e3/uL (140-360); RED BLOOD COUNT 4.09 x10e6/uL (4.3-5.7); RED CELL DISTRIBUTION WIDTH 12.8 % (11.7-14.4); WHITE BLOOD COUNT 6.82 x10e3/uL (4.8-10.8)
[2024-02-29 05:25] LABS: ABG HCO3 25 mmol/L (22-26); ABG PCO2 41 mmHg (35-45); ABG PO2 114 mmHg (80-105); ABG TCO2 26
[2024-02-29 05:35] LABS: ALBUMIN 2.1 g/dL (3.5-5.0); ALBUMIN/GLOBULIN RATIO 0.9 (0.8-2.0); ANION GAP 11.8 mmol/L (8-16); BILIRUBIN,TOTAL 0.5 mg/dL (0.2-1.2); CALCIUM 7.6 mg/dL (8.4-10.2); CREATININE, SERUM 0.68 mg/dL (0.72-1.25); MAGNESIUM 1.7 MG/DL (1.3-2.1); POTASSIUM 3.8 mmol/L (3.5-5.1); TOTAL PROTEIN 4.5 g/dL (6.5-8.1)
[2024-02-29 09:56] LABS: TOTAL PROTEIN,BODY FLUID 2.1 g/dL
[2024-02-29] MEDS: PHOSPHORUS 250 MG TAB PO SCH (15:29)
[2024-02-29] MEDS ORDERED: ENOXAPARIN SOD INJ 40 MG/0.4 ML SYR SC SCH (17:00)
[2024-02-29] MEDS: MAGNESIUM HYDROXIDE 30 ML UDC PO ONE (23:07)
[2024-03-01] VITALS (10 sets, daily range): BP systolic 132–165; BP diastolic 72–80; PULSE 66–82; RESP 18–20; TEMP 97.3–98; O2SAT 94–100
[2024-03-01 05:20] LABS: BASOPHILS % 0.7 % (0.0-1.0); EOSINOPHILS # (AUTO) 0.6 (0.0-0.4); EOSINOPHILS % 10.3 % (0.0-6.0); HEMATOCRIT 34.1 % (38.2-49.6); HEMOGLOBIN 10.9 g/dL (14.0-18.0); LYMPHOCYTES # (AUTO) 1.1 (1.0-3.2); LYMPHOCYTES % 18.4 % (18.0-39.1); MEAN CORPUSCULAR HEMOGLOBIN 29.7 pg (28-32); MEAN CORPUSCULAR VOLUME 92.9 fL (81-99); MONOCYTES # (AUTO) 0.4 (0.2-0.8); MONOCYTES % 5.9 % (4.4-11.3); NEUTROPHILS % 64.5 % (38.7-80.0); PLATELET COUNT 210 x10e3/uL (140-360); RED BLOOD COUNT 3.67 x10e6/uL (4.3-5.7); RED CELL DISTRIBUTION WIDTH 12.9 % (11.7-14.4); WHITE BLOOD COUNT 6.13 x10e3/uL (4.8-10.8)
[2024-03-01 05:52] LABS: ANION GAP 9.7 mmol/L (8-16); CALCIUM 7.5 mg/dL (8.4-10.2); CREATININE, SERUM 0.63 mg/dL (0.72-1.25); POTASSIUM 3.7 mmol/L (3.5-5.1)
[2024-03-01] MEDS: ONDANSETRON HCL INJ 2MG/ML 2ML 2 MG/ML VIAL IV PRN (10:00)
[2024-03-01] MEDS: BISACODYL 10 MG SUPP PR ONE (11:38)
[2024-03-01] MEDS: METOCLOPRAMIDE HCL 10 MG/2ML VIAL IV SCH (11:47)
[2024-03-01] MEDS ORDERED: ACETAMINOPHEN 325 MG TAB PO PRN (13:45)
[2024-03-01] MEDS: HYDROCODONE/APAP 5MG-325MG TAB PO PRN (17:38)
[2024-03-02] VITALS (10 sets, daily range): BP systolic 130–163; BP diastolic 78–85; PULSE 67–79; RESP 16–19; TEMP 97.3–98.6; O2SAT 94–100
[2024-03-02 07:04] LABS: ANION GAP 11.9 mmol/L (8-16); CALCIUM 7.6 mg/dL (8.4-10.2); CREATININE, SERUM 0.7 mg/dL (0.72-1.25); POTASSIUM 3.9 mmol/L (3.5-5.1)
[2024-03-02] MEDS: PHOSPHORUS 250 MG TAB PO ONE (12:24)
[2024-03-02] MEDS: BISACODYL 10 MG SUPP PR SCH (19:57)
[2024-03-03] VITALS (9 sets, daily range): BP systolic 119–158; BP diastolic 63–85; PULSE 69–85; RESP 16–21; TEMP 97.7–98.4; O2SAT 95–97
[2024-03-03 04:54] LABS: BASOPHILS # (AUTO) 0.1 (0.0-0.1); EOSINOPHILS # (AUTO) 0.5 (0.0-0.4); EOSINOPHILS % 8.4 % (0.0-6.0); HEMATOCRIT 33.1 % (38.2-49.6); HEMOGLOBIN 11.2 g/dL (14.0-18.0); LYMPHOCYTES % 16.9 % (18.0-39.1); MEAN CORPUSCULAR HEMOGLOBIN 29.9 pg (28-32); MEAN CORPUSCULAR HGB CONC 33.8 g/dL (31-35); MONOCYTES # (AUTO) 0.3 (0.2-0.8); MONOCYTES % 5.7 % (4.4-11.3); NEUTROPHILS # (AUTO) 3.9 (2.1-6.9); NEUTROPHILS % 67.7 % (38.7-80.0); PLATELET COUNT 230 x10e3/uL (140-360); RED BLOOD COUNT 3.75 x10e6/uL (4.3-5.7); RED CELL DISTRIBUTION WIDTH 13.1 % (11.7-14.4); WHITE BLOOD COUNT 5.81 x10e3/uL (4.8-10.8)
[2024-03-03 05:06] LABS: MEAN CORPUSCULAR VOLUME 88.3 fL (81-99)
[2024-03-03 05:17] LABS: ANION GAP 14.6 mmol/L (8-16); CALCIUM 7.7 mg/dL (8.4-10.2); CREATININE, SERUM 0.69 mg/dL (0.72-1.25); MAGNESIUM 1.9 MG/DL (1.3-2.1); PHOSPHORUS 2.2 MG/DL (2.3-4.7); POTASSIUM 3.6 mmol/L (3.5-5.1)
[2024-03-04] VITALS (9 sets, daily range): BP systolic 142–168; BP diastolic 73–88; PULSE 68–80; RESP 16–18; TEMP 97.9–99.5; O2SAT 92–100
[2024-03-04 05:38] LABS: ANION GAP 12.4 mmol/L (8-16); CALCIUM 7.6 mg/dL (8.4-10.2); CREATININE, SERUM 0.69 mg/dL (0.72-1.25); PHOSPHORUS 2.6 MG/DL (2.3-4.7)
[2024-03-04 05:39] LABS: POTASSIUM 3.4 mmol/L (3.5-5.1)
[2024-03-04] MEDS: PHOSPHORUS 250 MG TAB PO SCH (09:02)
[2024-03-04] MEDS ORDERED: REGLAN10 MG PO (11:19)
[2024-03-04] MEDS ORDERED: ONDANSETRON HCL 4 MG ORAL DISINTEGRATING TAB PO PRN (16:45)
[2024-03-04] MEDS: METOCLOPRAMIDE HCL 10 MG TAB PO SCH (17:29)
[2024-03-05] MEDS ORDERED: PANTOPRAZOLE SOD 40 MG TABEC PO SCH (17:00)
== END 2024-03-04 17:57 | disposition home or self-care (01) | DRG 335 ==
LOC: ER 07:46 → ERHOLD 10:00 → MED/SURG 14:05 → OBSVTOIN 02-23 12:34
PROVIDERS: ADMIT Internal Medicine; ATTEND Internal Medicine
PROC: 0DN80ZZ Release Small Intestine, Open Approach (ICD-10-PCS; principal; 2024-02-23 15:07)
PROC: 0W993ZZ Drainage of Right Pleural Cavity, Percutaneous Approach (ICD-10-PCS; 2024-02-26)
PROC: 4A033R1 Measurement of Arterial Saturation, Peripheral, Percutaneous Approach (ICD-10-PCS; 2024-02-27)
DX: K46.0 Unspecified abdominal hernia with obstruction, without gangrene (principal); E43 Unspecified severe protein-calorie malnutrition; K56.50 Intestinal adhesions [bands], unspecified as to partial versus complete obstruction; J90 Pleural effusion, not elsewhere classified; Z68.1 Body mass index [BMI] 19.9 or less, adult; J95.811 Postprocedural pneumothorax; K56.7 Ileus, unspecified; E11.9 Type 2 diabetes mellitus without complications; N40.0 Benign prostatic hyperplasia without lower urinary tract symptoms; I10 Essential (primary) hypertension; K21.9 Gastro-esophageal reflux disease without esophagitis; Z79.85 Long-term (current) use of injectable non-insulin antidiabetic drugs; Z79.84 Long term (current) use of oral hypoglycemic drugs; Z90.49 Acquired absence of other specified parts of digestive tract; Z90.79 Acquired absence of other genital organ(s); Z88.2 Allergy status to sulfonamides
CPT/HCPCS: 32555; 36415; 71045; 71046; 74018; 74177; 74470; 76604; 80048; 80053; 82040; 82805; 82945; 82948; 83615; 83735; 83880; 84100; 84132; 84157; 85025; 85610; 87070; 87205; 88112; 88305; 89051; 93306; 94799; 96372; 99252; 99284; C1729; G0378; J0330; J0360; J0696; J1100; J1171; J1650; J2003; J2185; J2405; J2470; J2765; J3480; J7030; J7042; J7120; Q9967